=== PATIENT | female | born 1955 | race Caucasian/White ===

== ENCOUNTER 2018-02-05 18:03 | Emergency (ER) | payer MEDICAID ==
[~2018-02-05] VITALS: Ht 162.6 cm; Wt 66.7 kg
[2018-02-05 18:08] VITALS: BP 147/79
--- NOTE | 2018-02-05 18:25 | NUR ---
63/F BIB SELF, C/O BL EYE EDEMA AND FACIAL EDEMA SINCE THIS MORNING. PT STATES SHE WOKE UP WITH BILATERAL FACIAL EDEMA. FEELS FACIAL TINGLING AROUND EYES AND ALONG JAW LINE, REPORTS SHE IS VERY ITCHY. PT DENIES EATING ANY NEW FOOD, UNSURE IF SHE GOT BIT BY SOMETHING DURING THE NIGHT. DENIES PAIN OR FACIAL INJURY. AIRWAY PATENT. RR EVEN AND UNLABORED.
--- NOTE | 2018-02-05 19:11 | NUR ---
Pt report given to Bib AHUMADA. Transfer of care at this time.
--- NOTE | 2018-02-05 19:11 | NUR ---
ASSUMED CARE OF PT FROM GILBERTO AHUMADA
[2018-02-05] MEDS ORDERED: methylPREDNISolone SS 125 MG in WATER STERILE 2 ML IM ONE (19:50)
[2018-02-05 20:21] VITALS: BP 140/71
--- NOTE | 2018-02-05 20:21 | NUR ---
Patient discharged with v/s stable. Written and verbal after care instructions given and explained. Patient alert, oriented and verbalized understanding of instructions. Ambulatory with steady gait. All questions addressed prior to discharge. ID band removed. Patient advised to follow up with PMD. Rx of DIPHENHYDRAMINE, PREDNISONE given. Patient educated on indication of medication including possible reaction and side effects. Opportunity to ask questions provided and answered.
== END 2018-02-05 20:10 | disposition home or self-care (01) ==
LOC: MED 18:03
DX: H05.223 Edema of bilateral orbit (principal); T78.49XA Other allergy, initial encounter; X58.XXXA Exposure to other specified factors, initial encounter; Z90.49 Acquired absence of other specified parts of digestive tract
CPT/HCPCS: 96372; 99283; J2930; Q0163